=== PATIENT | male | born 1940 | race Caucasian/White ===

== ENCOUNTER → 2017-03-09 | Outpatient (CLI) | payer BC ==
[2017-03-09 13:21] LABS: URINE APPEARANCE CLEAR (CLEAR); URINE BILIRUBIN NEG (NEG); URINE COLOR YELLOW; URINE NITRITE NEG (NEG); URINE PH 7.5 (4.5-7.5); URINE SPECIFIC GRAVITY 1.012 (1.000-1.030); UROBILINOGEN NEG (NEG)
[2017-03-09 13:24] LABS: MANUAL MICROSCOPIC REQUIRED? NO; REVIEW REQ? NO
[2017-03-09 13:42] LABS: ALT/SGPT 24 U/L (12-78); AST/SGOT 14 U/L (15-37); BLOOD UREA NITROGEN 11 mg/dl (7-18); BUN/CREATININE RATIO 11.3 (10-20); CALCIUM 9.2 mg/dl (8.5-10.1); CARBON DIOXIDE 31 mmol/L (21-32); CHLORIDE 107 mmol/L (98-107); CHOLESTEROL 149 mg/dl (0-200); CREATININE 0.97 mg/dl (0.60-1.40); GLUCOSE 101 mg/dl (70-99); POTASSIUM 3.9 mmol/L (3.5-5.1); SODIUM 143 mmol/L (136-145); TRIGLYCERIDES 92 mg/dl (0-150); VERY LOW DENSITY LIPOPROT CALC 18 mg/dl
[2017-03-09 13:48] LABS: CHOLESTEROL/HDL RATIO 3.6; HDL CHOLESTEROL 41 mg/dl; LDL CHOLESTEROL CALCULATED 90 mg/dl
== END ==
LOC: C.LABMFLN 06:57
PROVIDERS: ATTEND Family Medicine
DX: E78.5 Hyperlipidemia, unspecified (principal); I10 Essential (primary) hypertension; E03.9 Hypothyroidism, unspecified; I35.8 Other nonrheumatic aortic valve disorders; R31.29 Other microscopic hematuria

== ENCOUNTER → 2017-09-02 | Outpatient (CLI) | payer BC ==
[2017-09-02 13:39] LABS: ALT/SGPT 24 U/L (12-78); AST/SGOT 11 U/L (15-37); BLOOD UREA NITROGEN 15 mg/dl (7-18); BUN/CREATININE RATIO 14.5 (10-20); CALCIUM 8.8 mg/dl (8.5-10.1); CARBON DIOXIDE 28 mmol/L (21-32); CHLORIDE 109 mmol/L (98-107); CREATININE 1.06 mg/dl (0.60-1.40); GLUCOSE 89 mg/dl (70-99); POTASSIUM 3.8 mmol/L (3.5-5.1); SODIUM 143 mmol/L (136-145)
[2017-09-02 13:49] LABS: CHOLESTEROL 138 mg/dl (0-200); CHOLESTEROL/HDL RATIO 3.1; HDL CHOLESTEROL 44 mg/dl; LDL CHOLESTEROL CALCULATED 74 mg/dl; TRIGLYCERIDES 98 mg/dl (0-150); VERY LOW DENSITY LIPOPROT CALC 20 mg/dl
== END | disposition home or self-care (01) ==
LOC: C.LABMFLN 06:54
PROVIDERS: ATTEND Family Medicine
DX: E78.5 Hyperlipidemia, unspecified (principal); I10 Essential (primary) hypertension; E03.9 Hypothyroidism, unspecified

== ENCOUNTER 2020-08-20 20:16 | Inpatient (IN) ==
--- NOTE | 2020-08-20 20:35 | Emergency Department Note ---
Impression & Plan Chest pain, exertional, Abnormal cardiovascular stress test, Non-ST elevation KS (NSTEMI) ED Provider Note Provider: Bonifacio Norton MD DATE OF SERVICE:08/20/2020 CHIEF COMPLAINT: Exertional chest pain, stress test abnormal HISTORY OF PRESENT ILLNESS: Patient is a 80-year-old gentleman with a past medical history of hypothyroidism, diastolic dysfunction, hyperlipidemia, esophageal dilation for stenosis, and GERD presenting today referred by his special assemblies supervisor after an abnormal stress test today. Patient states he has been having for some months some worsening exertional chest discomfort and slight shortness of breath. Patient states he has had outpatient work-up. Had an EGD with some esophageal stenosis in May. Symptoms have improved some with burping he states but predominantly in the center chest occasionally radiates to the left upper arm. Occasionally little leg swelling. Denies abdominal pain. Given continued symptoms underwent nuclear stress test today. Patient states he was called by his special assemblies supervisor to review this imaging today and is concerned for large area of ischemia in the LAD territory and was sent here for further evaluation and likely cardiac catheterization tomorrow. Patient denies any palpitations or dizziness currently. Patient states he is on Plavix. Patient has been started on multiple medications over the past week including isosorbide without improvement of symptoms. Patient currently chest pain-free. Patient does endorse pain during stress test today. REVIEW OF SYSTEMS: A total of 10 review of systems was obtained and negative except as stated above in the HPI. PAST MEDICAL HISTORY: As noted above MEDICATIONS: reviewed home medication list FMH:CAD SOCIAL HISTORY: lives with in [place], distant former smoker PHYSICAL EXAM: GENERAL: alert and oriented in no acute distress on stretcher Head: normocephalic and atraumatic EYES: No injection, discharge or icterus. NECK: Trachea midline. Supple. LUNGS: Airway patent. No retractions. Breath sounds clear HEART: Regular rate and rhythm. No chest wall tenderness ABDOMEN: Soft and non-tender, without guarding or rebound. SKIN: Acyanotic, warm, dry, without rashes EXTREMITIES: Without swelling, tenderness or deformity NEUROLOGICAL: No focal deficits. No aphasia. No facial droop or slurred speech. Ambulatory. EK bpm normal sinus rhythm. No PVCs or PACs noted. No acute segment elevation but some V3 through V5 slight ST depression noted. CONTINUOUS CARDIAC MONITORING: was ordered and showed a heart rate of 88 bpm in NSR Chest xray 1view: Per my interpretation without evidence of lobar pneumonia or pneumothorax. No acute bony abnormality noted. No cardiomegaly. Prominent right hilar fullness with prominent interstitial markings. No clear pulmonary edema. No free air under the diaphragm. Patient's laboratory studies and imaging reviewed. Differential includes Cardiac ischemia, aortic dissection, pulmonary embolism, pneumothorax, pneumonia, pericarditis, myocarditis, esophageal rupture, GERD, cholecystitis, pancreatitis, musculoskeletal, as well as other pathologies. IMPRESSION/MEDICAL DECISION MAKING: Patient presents for abnormal stress test and exertional chest pain. Has extensive prior work-up including EGD. Positive stress test findings today. Patient currently chest pain-free in the ED. EKG, chest x-ray, basic labs obtained. No anemia or leukocytosis is noted. TSH wnl. INR is normal. No transaminitis. EKG with questions of some ST depression but no acute STEMI. Trop positive likely 2/2 to stress. Patient again is symptom-free at this point. Discussed with the hospitalist patient will be admitted for further cardiac evaluation and catheterization in the morning unless he develops other significant symptoms. Patient is already on Plavix. Rapid Covid testing was sent as patient require cardiac catheterization in the morning and negative. No emergent need overnight given his lack of symptoms at this time. Doubt PE given stress test findings today or aortic dissection. No abdominal pain/tenderness and doubt intraabdominal process for symptoms. Given +trop and stress results will start heparin ggt. Hospitalist to see for admission DIAGNOSIS: NSTEMI, exertional chest pain, abnormal stress test DISPOSITION: Hospitalist will evaluate Patient was agreeable with this plan. Critical Care I have personally spent 33 minutes of critical care time in the direct managem ent of this patient. This includes bedside care, interpretation of diagnostic studies, and testing, discussion with consultants, patient, and family members, and other required patient management activities. These 33 minutes is in excess of all separately billable procedures. Past Med/Surg History Medical History (Updated 08/20/20 @ 21:37 by Bonifacio Norton M.D.) Aortic valve sclerosis Difficult airway for intubation "small airway" noted on cholecysectomy 2004? @ [facility]--had knee sx later with no issues Esophageal stricture GERD (gastroesophageal reflux disease) Hearing deficit Hiatal hernia Hyperlipidemia Hypertension Hypothyroidism On anticoagulant therapy on plavix d/t vertebrobasilar insufficiency Vertebrobasilar insufficiency Surgical History (Updated 08/12/20 @ 09:13 by Madi Hylton MD) History of cataract surgery bilt History of cholecystectomy History of knee surgery left History of Mohs micrographic surgery for skin cancer nose x2 History of surgery on left wrist no hardware History of tonsillectomy and adenoidectomy History of tooth extraction S/P dilatation of esophageal stricture Family History Father , Age 62 Myocardial infarction Mother , Age 92 Heart disease Family/Other Pure hypercholesterolemia Hypertension Other No family history of adverse response to anesthesia Denies family history of Ovarian cancer Prostate cancer Breast cancer Colorectal cancer Social History Smoking Status: Former smoker Age Started Using Tobacco: 15; Age Quit Using Tobacco: 33; packs per day: 1.5; Second Hand Exposure: Yes; Hx Alcohol Use: Yes Alcohol type: beer Hx Substance Use: No Preferred Language: Finnish Communication Ability: Effective Visual Impairment: Limited Hearing Ability: Use of Hearing Aid Hogshead Mat Inspector Required: No Beliefs That Will Affect Care: None marital status: Current Living Situation: Spouse current occupational status: employed 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 Feels Safe at Home: Yes Childhood Exposure to Second-Hand Smoke: Yes Diet Comment: "eat what I see diet" caffeine: Yes during the past year weight has: remained stable Dental Care, Regularly: Yes Physical Activity Frequency: 5-6 Times per Week Seatbelt Use: always Sunscreen Use: No Assistive Devices: Denture - Upper, Denture - Lower, Glasses and Hearing Aid - Bilateral Allergies Allergies Allergy/AdvReac Type Severity Reaction Status Date / Time No Known Allergies Allergy Verified 08/20/20 21:41 Home Meds Home Medications Medication Instructions Recorded Confirmed levothyroxine 50 mcg PO QAM 06/12/20 08/20/20 loratadine 10 mg capsule 10 mg PO DAILY PRN 08/12/20 08/20/20 famotidine 20 mg PO QAM 08/20/20 08/20/20 isosorbide mononitrate 30 mg PO QAM 08/20/20 08/20/20 pantoprazole 40 mg PO QPM 08/20/20 08/20/20 Previous Rx's Medication Instructions Recorded simvastatin 40 mg tablet 40 mg PO QPM #90 tab 11/22/19 amlodipine 10 mg-benazepril 40 mg 1 cap PO QAM #90 cap 08/18/20 capsule clopidogrel 75 mg tablet 75 mg PO QAM #90 tab 08/18/20 metoprolol tartrate 25 mg tablet 25 mg PO BID #180 tab 08/18/20 Results & Data (ED) Vital Signs Vital Signs - 24 hr 08/20/20 20:18 08/20/20 20:38 08/20/20 20:41 Temperature 36.8 C Temperature Source Oral Pulse Rate 112 H 80 Pulse Rhythm Regular Pulse Strength Normal Respiratory Rate 20 15 Respiratory Effort / Characteristics Non-Labored Spontaneous Respiratory Depth Normal Respiratory Pattern Regular Blood Pressure 146/92 H Blood Pressure Mean 110 Blood Pressure Position Sitting Pulse Oximetry 95 97 Oxygen Delivery Method Room Air Room Air Sepsis Recent Fever Within 48 Hours No Sepsis New/Unexplained Change in Mental Status N/A Sepsis Action Taken by Nursing No Action Required 08/20/20 20:50 08/20/20 21:00 08/20/20 21:01 Temperature Temperature Source Pulse Rate 85 70 72 Pulse Rhythm Pulse Strength Respiratory Rate 15 17 21 Respiratory Effort / Characteristics Respiratory Depth Respiratory Pattern Blood Pressure 118/86 Blood Pressure Mean 94 Blood Pressure Position Pulse Oximetry Oxygen Delivery Method Sepsis Recent Fever Within 48 Hours Sepsis New/Unexplained Change in Mental Status Sepsis Action Taken by Nursing 08/20/20 21:10 Temperature Temperature Source Pulse Rate 78 Pulse Rhythm Pulse Strength Respiratory Rate 20 Respiratory Effort / Characteristics Respiratory Depth Respiratory Pattern Blood Pressure Blood Pressure Mean Blood Pressure Position Pulse Oximetry Oxygen Delivery Method Sepsis Recent Fever Within 48 Hours Sepsis New/Unexplained Change in Mental Status Sepsis Action Taken by Nursing Laboratory Data Result diagrams: 08/20/20 20:36 08/20/20 20:36 Lab Results 08/20/20 08/20/20 08/20/20 Range/Units 20:36 20:36 20:36 WBC 8.11 (4.8-10.8) K/uL RBC 4.94 (4.7-6.1) M/uL Hgb 14.9 (14.0-18.0) g/dL Hct 43.7 (42-52) % MCV 88.5 (80-100) fL MCH 30.2 (25-34) pg MCHC 34.1 (32-36) g/dL RDW Std Deviation 44.3 (36.4-46.3) fL RDW Coeff of Marcus 13.6 (11.5-14.5) % Plt Count 326 (130-400) K/uL MPV 10.1 (7.4-10.4) fL Immature Gran % (Auto) 0.5 % Neut % (Auto) 66.3 % Lymph % (Auto) 21.1 % Hudson % (Auto) 9.5 % Eos % (Auto) 2.1 % Baso % (Auto) 0.5 % Neut # (Auto) 5.38 (1.4-6.5) K/uL Lymph # (Auto) 1.71 (1.2-3.4) K/uL Hudson # (Auto) 0.77 H (0.11-0.59) K/uL Eos # (Auto) 0.17 (0-0.5) K/uL Baso # (Auto) 0.04 (0-0.2) K/uL Immature Gran # (Auto) 0.04 H (0.00-0.02) K/uL PT 11.4 (9.0-12.0) Seconds INR 1.1 (0.9-1.1) APTT 29.7 (21.0-31.0) Seconds PTT Ratio 1.1 Sodium 140 (136-145) mmol/L Potassium 3.6 (3.5-5.1) mmol/L Chloride 108 H (98-107) mmol/L Carbon Dioxide 28 (21-32) mmol/L Anion Gap 4.0 (3-11) BUN 14 (7-18) mg/dl Creatinine 1.16 (0.6-1.4) mg/dl Est Cr Clr Drug Dosing 54.0 ml/min Est GFR ( Amer) 69.0 Est GFR (Non-Af Amer) 59.6 BUN/Creatinine Ratio 11.9 (10-20) Glucose 96 (70-99) mg/dl Calcium 9.5 (8.5-10.1) mg/dl Total Bilirubin 0.7 (0.2-1) mg/dl AST 17 (15-37) U/L ALT 28 (12-78) U/L Alkaline Phosphatase 85 (45-117) U/L Troponin I 0.263 H* (0-0.045) ng/ml Total Protein 8.3 H (6.4-8.2) gm/dl Albumin 4.3 (3.4-5.0) gm/dl Globulin 4.0 (2.5-4.0) gm/dl Albumin/Globulin Ratio 1.1 (0.9-2) Lipase 91 (73-393) U/L TSH 2.700 (0.300-4.500) uIu/ml COVID-19 Eval Order SARS-CoV-2, RNA, NAAT (NEGATIVE) 08/20/20 08/20/20 Range/Units 20:42 20:42 WBC (4.8-10.8) K/uL RBC (4.7-6.1) M/uL Hgb (14.0-18.0) g/dL Hct (42-52) % MCV (80-100) fL MCH (25-34) pg MCHC (32-36) g/dL RDW Std Deviation (36.4-46.3) fL RDW Coeff of Marcus (11.5-14.5) % Plt Count (130-400) K/uL MPV (7.4-10.4) fL Immature Gran % (Auto) % Neut % (Auto) % Lymph % (Auto) % Hudson % (Auto) % Eos % (Auto) % Baso % (Auto) % Neut # (Auto) (1.4-6.5) K/uL Lymph # (Auto) (1.2-3.4) K/uL Hudson # (Auto) (0.11-0.59) K/uL Eos # (Auto) (0-0.5) K/uL Baso # (Auto) (0-0.2) K/uL Immature Gran # (Auto) (0.00-0.02) K/uL PT (9.0-12.0) Seconds INR (0.9-1.1) APTT (21.0-31.0) Seconds PTT Ratio Sodium (136-145) mmol/L Potassium (3.5-5.1) mmol/L Chloride (98-107) mmol/L Carbon Dioxide (21-32) mmol/L Anion Gap (3-11) BUN (7-18) mg/dl Creatinine (0.6-1.4) mg/dl Est Cr Clr Drug Dosing ml/min Est GFR ( Amer) Est GFR (Non-Af Amer) BUN/Creatinine Ratio (10-20) Glucose (70-99) mg/dl Calcium (8.5-10.1) mg/dl Total Bilirubin (0.2-1) mg/dl AST (15-37) U/L ALT (12-78) U/L Alkaline Phosphatase (45-117) U/L Troponin I (0-0.045) ng/ml Total Protein (6.4-8.2) gm/dl Albumin (3.4-5.0) gm/dl Globulin (2.5-4.0) gm/dl Albumin/Globulin Ratio (0.9-2) Lipase (73-393) U/L TSH (0.300-4.500) uIu/ml COVID-19 Eval [facility] SARS-CoV-2, RNA, NAAT NEGATIVE (NEGATIVE) Discharge Plan Visit Data Chief Complaint: Referred by Doctor Stated Complaint: PALPITATIONS SENT BY DOCTOR ED Provider: Bonifacio Norton Discharge Problem: Chest pain, exertional, Abnormal cardiovascular stress test, Non-ST elevation KS (NSTEMI) Forms Stand Alone Forms: My [facility] Prescriptions Prescriptions: No Action simvastatin 40 mg tablet 40 mg PO QPM Qty: 90 RF: 3 amlodipine-benazepril 10-40 mg capsule 1 cap PO QAM Qty: 90 RF: 3 clopidogrel 75 mg tablet 75 mg PO QAM Qty: 90 RF: 3 metoprolol tartrate 25 mg tablet 25 mg PO BID Qty: 180 RF: 3 loratadine 10 mg capsule 10 mg PO DAILY PRN (Reason: Allergy Symptoms) RF: 0 levothyroxine 50 mcg tablet 50 mcg PO QAM RF: 0 isosorbide mononitrate 30 mg tablet extended release 24 hr 30 mg PO QAM RF: 0 famotidine 20 mg tablet 20 mg PO QAM RF: 0 pantoprazole 40 mg tablet,delayed release (DR/EC) 40 mg PO QPM RF: 0
[2020-08-20 20:52] LABS: Basophils # (auto) 0.04 K/uL (0-0.2); Basophils % (auto) 0.5 %; Eosinophils # (auto) 0.17 K/uL (0-0.5); Eosinophils % (auto) 2.1 %; Hematocrit (blood only) 43.7 % (42-52); Hemoglobin 14.9 g/dL (14.0-18.0); Immature Granulocytes # (auto) 0.04 K/uL (0.00-0.02); Immature Granulocytes % (auto) 0.5 %; Lymphocytes # (auto) 1.71 K/uL (1.2-3.4); Lymphocytes % (auto) 21.1 %; Mean Corpuscular Hemoglobin 30.2 pg (25-34); Mean Corpuscular Hgb Conc 34.1 g/dL (32-36); Mean Corpuscular Volume 88.5 fL (80-100); Mean Platelet Volume 10.1 fL (7.4-10.4); Monocytes # (auto) 0.77 K/uL (0.11-0.59); Monocytes % (auto) 9.5 %; Neutrophils # (auto) 5.38 K/uL (1.4-6.5); Neutrophils % (auto) 66.3 %; Platelet Count 326 K/uL (130-400); RDW Coefficient of Variation 13.6 % (11.5-14.5); RDW Standard Deviation 44.3 fL (36.4-46.3); Red Blood Count 4.94 M/uL (4.7-6.1); White Blood Count 8.11 K/uL (4.8-10.8)
[2020-08-20 21:05] LABS: INR 1.1 (0.9-1.1); Partial Thromboplastin Ratio 1.1; Partial Thromboplastin Time 29.7 Seconds (21.0-31.0); Prothrombin Time 11.4 Seconds (9.0-12.0)
[2020-08-20 21:14] LABS: Albumin Level 4.3 gm/dl (3.4-5.0); BUN Creatinine Ratio 11.9 (10-20); Calcium 9.5 mg/dl (8.5-10.1); Est GFR (Non-African American) 59.6; Potassium 3.6 mmol/L (3.5-5.1)
[2020-08-20 21:27] LABS: Albumin Globulin Ratio 1.1 (0.9-2); Bilirubin,Total 0.7 mg/dl (0.2-1); Thyroid Stimulating Hormone 2.7 uIu/ml (0.300-4.500); Total Protein 8.3 gm/dl (6.4-8.2); Troponin I 0.263 ng/ml (0-0.045)
[2020-08-20] MEDS ORDERED: Heparin IV Low Dose WITH Bolus IV STA (22:00)
[2020-08-20] MEDS ORDERED: HEPARIN SODIUM/DEXTROSE 25,000 UNITS/500 ML BAG IV SCH (22:00)
[2020-08-20] MEDS ORDERED: HEPARIN SOD (PORCINE) 1000 UNIT/ML 10 ML VIAL ONE (22:13)
--- NOTE | 2020-08-20 23:01 | History & Physical Report ---
Date of Service August 20, 2020 Assessment & Plan (1) Non-ST elevation AR (NSTEMI): Pt is a 80yo gentleman with a PMHx significant for HTN, HLD, hypothyroidism, GERD and vertebrobasilar insufficiency who was admitted with an NSTEMI for cath in the AM. NSTEMI -Pt states he has been having anginal symptoms with exertion for the last 3 months -Had a stress echo today which showed ischemia in the LAD territory, EF of 56% noted -Was advised by his paper winder to come in for urgent catheterization in the AM -Currently w/o chest pain, nitro-bid 0.5inch q6h ordered PRN. Can consider adding morphine if additional pain control needed. Continue home isosorbide mononitrate 30mg daily. -Trops elevated to 0.263, trend q6h -continue heparin drip -NPO after midnight for procedure. COVID negative. -NSS@80mls/hr -admit to PCU/tele for continuous cardiac monitoring HTN -continue home beta jeffrey: metoprolol tartrate 25mg BID -continue home LUDIVINA (with CC jeffrey): amlodipine 10mg-benazepril 40mg HLD -continue home statin: simvastatin 40mg daily -consider switching to a high intensity statin GERD -continue home pantoprazole 40mg daily -continue home famotidine 20mg daily Hypothyroidism -continue home levothyroxine 50 mcg daily Vertebrobasilar Insufficiency -continue home Plavix 75mg daily -not currently on aspirin FEN/GI: NPO after midnight, NSS@80mls/hr DVT Prophylaxis: on a heparin drip CODE STATUS: Full code Dispo: PCU/tele (2) Hypothyroidism: (3) Benign essential hypertension: (4) Hyperlipidemia: (5) Chronic GERD: (6) Aortic valve sclerosis: (7) Hiatal hernia: (8) Chest pain, exertional: (9) Vertebrobasilar insufficiency: History of Present Illness Primary Care Provider: Byron Neri MD Pt is a very pleasant 80yo gentleman with a PMHx significant for HTN, HLD, hypothyroidism, GERD and vertebrobasilar insufficiency who was admitted with an NSTEMI for cath in the AM. Pt states that he has been having chest pain with exertion for the last 3 months. 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 Does not take anything when this happens (states his has nitro pills but not him) and the pain usually goes away after some rest. States the last time he had pain was this evening after his stress echo. Does not have the pain right now. Denies any associated SOB, palpitations, N/V. Has been following with [facility] cardi[facility] who asked him to come in today for cath in the AM. He smoked for 18 years but quit in 1973, follows no particular diet, and has a significant fam Hx of dad having an AR at age 52. PMHx: As above PSH: Cholecystectomy, and L knee meniscal surgery. Fam Hx : His dad had an AR at age 52, and 10 years later. Mom lived to 92 and had atrial fibrillation and CHF. Allergies: NKDA SH: Lives at home with his . Smoked for 18years but quit in 1973. States he has an occasional beer but no recreational drug use. Diet consists of "what I see, I eat". States he does not exercise particularly. Allergies Allergy/AdvReac Type Severity Reaction Status Date / Time No Known Allergies Allergy Verified 08/20/20 21:41 Home Medications Home Medications Medication Instructions Recorded Confirmed Type levothyroxine 50 mcg PO QAM 06/12/20 08/20/20 History loratadine 10 mg capsule 10 mg PO DAILY PRN 08/12/20 08/20/20 History amlodipine 10 mg-benazepril 40 mg 1 cap PO QAM #90 cap 08/18/20 08/20/20 Rx capsule clopidogrel 75 mg tablet 75 mg PO QAM #90 tab 08/18/20 08/20/20 Rx metoprolol tartrate 25 mg tablet 25 mg PO BID #180 tab 08/18/20 08/20/20 Rx famotidine 20 mg PO QAM 08/20/20 08/20/20 History isosorbide mononitrate 30 mg PO QAM 08/20/20 08/20/20 History pantoprazole 40 mg PO QPM 08/20/20 08/20/20 History aspirin 81 mg PO DAILY #30 tab 08/21/20 Rx rosuvastatin 20 mg PO DAILY 30 Days #30 tab 08/21/20 Rx Past Med/Surg History Medical History (Updated 08/22/20 @ 00:02 by Background Iban) Aortic valve sclerosis Difficult airway for intubation "small airway" noted on cholecysectomy 2004? @ [facility]--had knee sx later with no issues Esophageal stricture GERD (gastroesophageal reflux disease) Hearing deficit Hiatal hernia Hyperlipidemia Hypertension Hypothyroidism On anticoagulant therapy on plavix d/t vertebrobasilar insufficiency Vertebrobasilar insufficiency Surgical History History of cataract surgery bilt History of cholecystectomy History of knee surgery left History of Mohs micrographic surgery for skin cancer nose x2 History of surgery on left wrist no hardware History of tonsillectomy and adenoidectomy History of tooth extraction S/P dilatation of esophageal stricture Family History Father , Age 62 Myocardial infarction Mother , Age 92 Heart disease Family/Other Pure hypercholesterolemia Hypertension Other No family history of adverse response to anesthesia Denies family history of Ovarian cancer Prostate cancer Breast cancer Colorectal cancer Social History Smoking Status: Former smoker Age Started Using Tobacco: 15; Age Quit Using Tobacco: 33; packs per day: 1.5; Second Hand Exposure: Yes; Hx Alcohol Use: Yes Alcohol type: beer Hx Substance Use: No Preferred Language: Maltese Communication Ability: Effective Visual Impairment: Limited Hearing Ability: Use of Hearing Aid Flume Tender Required: No Beliefs That Will Affect Care: None marital status: Current Living Situation: Spouse 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 occupational status: employed 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 Feels Safe at Home: Yes Childhood Exposure to Second-Hand Smoke: Yes Diet Comment: "eat what I see diet" caffeine: Yes during the past year weight has: remained stable Dental Care, Regularly: Yes Physical Activity Frequency: 5-6 Times per Week Seatbelt Use: always Sunscreen Use: No Assistive Devices: Denture - Upper and Hearing Aid - Bilateral Review of Systems Constitutional: no fever, no chills and no sweats Eyes: no worsening vision Ear, Nose, Mouth, Throat: no nasal congestion and no sore throat Respiratory: no cough and no dyspnea Cardiovascular: + chest pain and + chest pain with activity; no dyspnea on exe rtion, no palpitations and no edema Gastrointestinal: no nausea, no vomiting, no constipation, no diarrhea/loose stools and no blood in stools Genitourinary: no dysuria Musculoskeletal: no back pain Integumentary: no rash Neurologic: no tingling, no numbness, no headache(s) and no confusion Psychiatric: no confusion Physical Exam Physical Exam: General: Alert, oriented. No acute distress, laying in bed watching TV Skin: No noted rashes or bruises Psych: Appropriate mood and affect Neuro: No gross deficits HEENT: NC/AT Chest: Nontender to palpation. CV: RRR, Normal s1, s2. Blowing murmur appreciated Resp: Breath sounds clear bilaterally, no increased effort of breathing. No crackles/rhonchi/rales. Abdomen: Soft, nontender, protuberant. No guarding. Extremities: No edema in lower extremities bilaterally. Results & Data Results & Data ([facility]) Vital Signs (Past 12 Hours) Vital Signs Temp Pulse Resp BP Pulse Ox 08/20/20 22:20 68 15 08/20/20 22:10 72 16 08/20/20 22:01 65 16 118/89 08/20/20 22:00 72 17 08/20/20 21:50 68 23 08/20/20 21:40 69 16 08/20/20 21:30 70 20 08/20/20 21:20 67 17 08/20/20 21:10 78 20 08/20/20 21:01 72 21 118/86 08/20/20 21:00 70 17 08/20/20 20:50 85 15 08/20/20 20:41 80 15 08/20/20 20:38 97 08/20/20 20:18 36.8 C 112 H 20 146/92 H 95 Supervising Physician Co-Signing Physician Notes Attending addendum: I have physically seen this patient, have supervised the medical residents activities, and agree with the H&P unless as otherwise noted. Assessment and Plan: Elevated troponin/abnormal outpatient stress test- The patient will be admitted to telemetry for serial cardiac enzymes, serial EKG's, cardiac rhythm monitoring. Continue aspirin, clopidogrel, isosorbide mononitrate, amlodipine/benazepril and metoprolol tartrate. Consult cardiology GERD- Continue pantoprazole and famotidine. Hypothyroidism- Continue levothyroxine sodium Hyperlipidemia- Continue rosuvastatin 20 mg daily Remaining orders and notations as noted Resident Activity Tracking Resident Involvement: Resident Care Provided Care Provided: [facility]
[2020-08-21] MEDS ORDERED: NITROGLYCERIN 2% OINTMENT 30GM TUBE EXT PRN (00:07)
[2020-08-21] MEDS ORDERED: LORATADINE 10 MG TAB PO PRN (00:10)
[2020-08-21] MEDS: SODIUM CHLORIDE 0.9% 1000ML 1,000 ML IV SCH ×2 (00:47→15:07)
[2020-08-21 02:36] LABS: Basophils # (auto) 0.03 K/uL (0-0.2); Basophils % (auto) 0.4 %; Eosinophils # (auto) 0.17 K/uL (0-0.5); Eosinophils % (auto) 2.5 %; Hematocrit (blood only) 40.3 % (42-52); Hemoglobin 13.8 g/dL (14.0-18.0); Immature Granulocytes # (auto) 0.02 K/uL (0.00-0.02); Immature Granulocytes % (auto) 0.3 %; Lymphocytes # (auto) 1.15 K/uL (1.2-3.4); Lymphocytes % (auto) 16.9 %; Mean Corpuscular Hemoglobin 30.3 pg (25-34); Mean Corpuscular Hgb Conc 34.2 g/dL (32-36); Mean Corpuscular Volume 88.6 fL (80-100); Mean Platelet Volume 9.9 fL (7.4-10.4); Monocytes # (auto) 0.75 K/uL (0.11-0.59); Neutrophils # (auto) 4.68 K/uL (1.4-6.5); Neutrophils % (auto) 68.9 %; Platelet Count 275 K/uL (130-400); RDW Coefficient of Variation 13.7 % (11.5-14.5); RDW Standard Deviation 44.5 fL (36.4-46.3); Red Blood Count 4.55 M/uL (4.7-6.1)
[2020-08-21 02:54] LABS: BUN Creatinine Ratio 12.4 (10-20); Calcium 8.6 mg/dl (8.5-10.1); Creatinine Clr Calc Pharmacy 62.9 ml/min; Est GFR (African American) 82.6; Est GFR (Non-African American) 71.3; Potassium 3.5 mmol/L (3.5-5.1)
[2020-08-21 03:06] LABS: Troponin I 0.248 ng/ml (0-0.045)
[2020-08-21 04:44] LABS: Partial Thromboplastin Ratio 1.9
[2020-08-21] MEDS ORDERED: LEVOTHYROXINE SODIUM 50 MCG TABLET PO SCH (06:30)
--- NOTE | 2020-08-21 06:46 | XRay Report ---
XR chest 1V portable HISTORY: 80 years-old Male Chest Pain acute atypical chest pain COMPARISON: None TECHNIQUE: Portable AP view of the chest FINDINGS: Cardiac silhouette is upper limits of normal in size. Calcified plaque of the thoracic aortic arch. 4 .6 cm circumscribed opacity of the right paratracheal tissues. No pneumothorax, pleural effusion or o vert pulmonary edema. Minimal subsegmental left lung base atelectasis/scarring. Degenerative changes of the shoulders and spine. Cholecystectomy. IMPRESSION: 1. No acute process. 2. Right paratracheal opacity is suggestive of a probable vascular pedicle. Adenopathy or underlying lung lesion considered less likely. Correlate with prior imaging. ACT 112: Negative or not required by law. The above report was generated using voice recognition software. It may contain grammatical, syntax o r spelling errors. Electronically signed by: Femi Roberts M.D. 08/21/2020 6:45 AM
--- NOTE | 2020-08-21 07:11 | Hospitalist Progress Note ---
Date of Service August 21, 2020 Assessment & Plan (1) Unstable angina: Pt is a 80yo gentleman with a PMHx significant for HTN, HLD, hypothyroidism, GERD and vertebrobasilar insufficiency who was admitted with an NSTEMI for cath in the AM. hypertensive 154/87 this AM, otherwise normal vitals H/H ok. Hb 13.8 cmp wnl elev trop x2. 0.263->0.226 normal tsh 2.7 neg covid 08/20/20 cardiology consulted. plan is cath at 1200 per admission HPI: "Pt states that he has been having chest pain with exertion for the last 3 months. 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 Does not take anything when this happens (states his has nitro pills but not him) and the pain usually goes away after some rest. States the last time he had pain was this evening after his stress echo. Does not have the pain right now. Denies any associated SOB, palpitations, N/V. Has been [place] [facility] who asked him to come in today for cath in the AM. He smoked for 18 years but quit in 1973, follows no particular diet, and has a significant fam Hx of dad having an IA at age 52. PMHx: As above PSH: Cholecystectomy, and L knee meniscal surgery. Fam Hx : His dad had an IA at age 52, and 10 years later. Mom lived to and had atrial fibrillation and CHF. Allergies: NKDA SH: Lives at home with his . Smoked for 18years but quit in 1973. States he has an occasional beer but no recreational drug use. Diet consists of "what I see, I eat". States he does not exercise particularly." unstable angina -anginal symptoms with exertion for the last 3 months -Had a stress echo outpatient which showed ischemia in the LAD territory, EF of 56% noted -Was advised by his housing director to come in for urgent catheterization in the AM -Currently w/o chest pain, nitro-bid 0.5inch q6h ordered PRN. Can consider adding morphine if additional pain control needed. Continue home isosorbide mononitrate 30mg daily. -Trops elevated to 0.263, trend q6h -continue heparin drip -NPO after midnight for procedure. COVID negative. -NSS@80mls/hr -admit to PCU/tele for continuous cardiac monitoring HTN -continue home beta jeffrey: metoprolol tartrate 25mg BID -continue home LUDIVINA (with CC jeffrey): amlodipine 10mg-benazepril 40mg HLD -continue home statin: simvastatin 40mg daily -consider switching to a high intensity statin GERD -continue home pantoprazole 40mg daily -continue home famotidine 20mg daily Hypothyroidism -continue home levothyroxine 50 mcg daily Vertebrobasilar Insufficiency -continue home Plavix 75mg daily -not currently on aspirin FEN/GI: NPO after midnight, NSS@80mls/hr DVT Prophylaxis: on a heparin drip CODE STATUS: Full code Dispo: PCU/tele (2) Hypothyroidism: (3) Benign essential hypertension: (4) Hyperlipidemia: (5) Chronic GERD: (6) Aortic valve sclerosis: (7) Hiatal hernia: (8) Chest pain, exertional: (9) Vertebrobasilar insufficiency: Admission and Anticipated Discharge Date Admission Date: August 20, 2020 Subjective Patient exertional cp for 8-9 months. was worsening 2 months ago, so contacted his cardiology. can't exert over [address] Midchest radiate to L. sometimes mild tingling.goes down arm. neck pain 1 time. no jaw pain. no diaphoresis nausea vomiting. burping helps alleviate. 18 pack yr hx distant past. quit in 1973. no illicit. etoh. 1 beer every 3 wks per patient, had murmur since childhood surgeries: knee, gall bladder. tonsils. skin cancer melanoma no heart surgeries. currently all ros neg, including no cp at rest dad IA 52. passed at 62 mom no heart hx. murmur Review of Systems Review of Systems: Constitutional: Denies fever, chills, weight change Eyes: Denies blurry vision, vision changes ENT: Denies sore throat, sinus pain Cardiovascular: Denies chest pain, palpitations Respiratory: Denies shortness of breath, cough, sputum production, difficulty breathing Gastrointestinal: Denies abdominal pain, nausea, vomiting, constipation, diarrhea Genitourinary: Denies urinary symptoms including dysuria Musculoskeletal: Denies weakness, muscle aches/pain, joint aches/pain Neurological: Denies headache, numbness, tingling, focal weakness Physical Exam Physical Exam: General: Grossly A&O. NAD. Cooperative. HEENT: Atraumatic, normocephalic. EOMI Pulm: CTAB. -wheezes, -rales, -rhonchi. No respiratory distress. Cardiac: RRR, -mrg. Radial pulses intact and symmetrical. Abdominal: Nontender, nondistended, soft. 2/6 systolic murmur aortic and pulmonic regions. no bruits. radial2+ abd lung ok. eomi. mmm. poor dentition. no pedal edema. Results & Data Results & Data ([facility]) Vital Signs (Past 12 Hours) Vital Signs Temp Pulse Pulse Resp BP BP BP 08/21/20 06:59 36.8 C 69 18 154/87 H 08/21/20 03:38 37.0 C 68 18 147/87 H 08/21/20 00:12 36.6 C 99 H 18 152/90 H 08/21/20 00:00 70 08/20/20 23:10 84 20 08/20/20 23:00 72 17 118/89 08/20/20 22:50 91 H 20 08/20/20 22:40 73 18 08/20/20 22:20 68 15 08/20/20 22:10 72 16 08/20/20 22:01 65 16 118/89 08/20/20 22:00 72 17 08/20/20 21:50 68 23 08/20/20 21:40 69 16 08/20/20 21:30 70 20 08/20/20 21:20 67 17 08/20/20 21:10 78 20 08/20/20 21:01 72 21 118/86 08/20/20 21:00 70 17 08/20/20 20:50 85 15 08/20/20 20:41 80 15 08/20/20 20:38 08/20/20 20:18 36.8 C 112 H 20 146/92 H Pulse Ox 08/21/20 06:59 94 08/21/20 03:38 94 08/21/20 00:12 98 08/21/20 00:00 08/20/20 23:10 08/20/20 23:00 97 08/20/20 22:50 08/20/20 22:40 08/20/20 22:20 08/20/20 22:10 08/20/20 22:01 08/20/20 22:00 08/20/20 21:50 08/20/20 21:40 08/20/20 21:30 08/20/20 21:20 08/20/20 21:10 08/20/20 21:01 08/20/20 21:00 08/20/20 20:50 08/20/20 20:41 08/20/20 20:38 97 08/20/20 20:18 95 Resident Activity Tracking Resident Involvement: Resident Care Provided Care Provided: Adult Hospital Medicine
[2020-08-21] MEDS ORDERED: FAMOTIDINE 20 MG TAB PO SCH (09:00)
[2020-08-21] MEDS ORDERED: ISOSORBIDE MONO EXTENDED REL 30 MG TABCR PO SCH (09:00)
[2020-08-21] MEDS ORDERED: ENALAPRIL MALEATE 10 MG TAB PO SCH (09:00)
[2020-08-21] MEDS ORDERED: amLODIPine BESYLATE 5 MG TAB PO SCH (09:00)
[2020-08-21] MEDS: METOPROLOL TARTRATE 25 MG TAB PO SCH ×2 (09:35→11:15)
[2020-08-21] MEDS: CLOPIDOGREL BISULFATE 75 MG TAB PO SCH ×2 (09:36→11:15)
[2020-08-21] MEDS ORDERED: ASPIRIN 325 MG ECTAB PO ONE (11:10)
[2020-08-21] MEDS ORDERED: HEPARIN (PORCINE) 1000 UNIT/ML 10 ML (CATH LAB USE ONLY) ONE (11:14)
[2020-08-21] MEDS ORDERED: niCARdipine HCL INJ 2.5 MG/ML 10 ML AMP ONE (11:14)
[2020-08-21] MEDS ORDERED: fentaNYL citrate 100 MCG/2 ML VIAL ONE ×2 (11:14→13:49)
[2020-08-21] MEDS ORDERED: MIDAZOLAM HCL 1 MG/ML 2ML VIAL ONE ×3 (11:15→13:49)
[2020-08-21] MEDS ORDERED: NITROGLYCERIN/D5W 100MCG/ML 20ML SYR ONE (11:15)
[2020-08-21] MEDS: ASPIRIN 81 MG CHEW ONE ×2 (11:15→12:18)
[2020-08-21 11:21] LABS: Partial Thromboplastin Ratio 1.9
--- NOTE | 2020-08-21 11:22 | Cardiology Consultation ---
Date of Consultation August 21, 2020 Assessment & Plan (1) Abnormal nuclear stress test: (2) Unstable angina: (3) Benign essential hypertension: (4) Hyperlipidemia: ASSESSMENT/PLAN: 1. Unstable angina: Symptoms are consistent with unstable angina. Also has high risk myocardial perfusion study and elevated troponins with episode of chest discomfort yesterday. Recommend cardiac catheterization. Risks and benefits were discussed with him in detail. He was made aware that CT surgery is not available at this facility. Recommend aspirin. Continue Plavix for now (on Plavix for vertebrobasilar insufficiency). Continue beta-jeffrey, LUDIVINA- inhibitor, and other antihypertensive agents. Recommend high-intensity statin therapy. 2. Abnormal myocardial perfusion study: Suggests LAD ischemia (large territory). Plan as above. 3. Hypertension: Blood pressure elevated however he did not receive his morning medications. Discussed with nursing staff who plans on giving morning medications prior to cardiac catheterization. 4. Dyslipidemia: LDL not optimized. Replace simvastatin with high-intensity statin therapy. 5. Disposition: Cardiology will continue to follow. Patient care has been discussed with Dr. Lovell of the primary hospitalist service. Highly complex medical issues. Thank you for allowing me to participate in the care of your patient. Please call for any other questions or concerns. Sincerely, Anthony Hylton M.D. History of Present Illness Reason for Consultation: High risk myocardial perfusion study and unstable angina. Requesting Physician: Simón Lovell DO Attending Physician: Simón Lovell DO History of Present Illness Mr. Henry is a pleasant 80-year-old gentleman with a history significant for hypertension, diastolic dysfunction, hyperlipidemia, and vertebrobasilar insufficiency. He was diagnosed with esophageal stricture and hiatal hernia on EGD in 2019 and underwent esophageal dilation. He has had the following cardiac procedures: 1. Echocardiogram 06/11/09: Normal LV size and systolic function. Trace MR. Aortic valve sclerosis. RVSP 31 mmHg. Type I diastolic dysfunction. 2. Stress Echo 08/13/09: Exercised 6 minutes on standard Sanjeev protocol. Exercise stress echo negative for ischemia. Exercise ECG positive for ischemia. Hypertensive response, but he did not take his antihypertensive medications prior to the study. 3. Echo 04/19/13: Normal LV size, wall motion, and systolic function. EF 60-65%. Sclerotic aortic valve without stenosis. 4. Stress echo 06/08/2019 [facility]: Negative stress echo at 93% MPHR. Negative ECG. 3 minutes 46 seconds Sanjeev protocol. Normal LV systolic function. Mild left atrial dilation. Sclerotic aortic valve. Mild MR. 5. Myocardial perfusion study 08/20/2020: High risk study suggesting large territory of LAD ischemia with transient ischemic dilation. Hypokinesis on stress imaging in the LAD territory. Normal LV systolic function. He was last seen in the office on 08/12/2020 with symptoms concerning for angina. Cardiac catheterization was recommended however he preferred stress testing. Myocardial perfusion study was performed yesterday. He had no chest pain during the study but given the fact that his study suggested high risk disease, specifically large LAD territory with transient ischemic dilation, he was called at the time of the interpretation. When we discussed on the phone the results, he admitted that after I had left the stress portion of the study, he developed chest discomfort while sitting with his . He then went home from the hospital in the chest pain resolved. He has been having intermittent episodes of rest pain, angina with eating, and angina with physical activity, even regular daily activities. Given the symptoms, it was recommended that he immediately go to the emergency department for admission. Pain-free during our conversation and was chest pain-free in the ER. He has not had any chest discomfort while hospitalized. Initial troponin was 0.263, and repeat this morning was 0.226. He underwent rapid COVID19 screening which was negative. He was placed on a heparin drip by the hospitalist team. Angina consists of substernal chest discomfort that can radiate to his left chest. It occurs with exertion, at rest, and after eating. Sometimes, he feels better with belching. When exertional, he has associated dyspnea, but no diaphoresis. Symptoms typically resolve within 10-15 minutes of rest. His exercise tolerance has significantly declined over time. He denies melena, hematochezia, hematuria, or other bleeding. He denies orthopnea, syncope, near-syncope, palpitations, edema, fevers, chills, nausea, vomiting, or abdominal pain. Review of systems: As above. Review of systems otherwise negative/unremarkable. Family history: Father had WI at the age of 52. Social history: He quit smoking at the age of 33. Rare alcohol. No drugs. He lives at home with his , Lisa. He had 2 sons and 1 daughter however 1 son committed suicide at the age of 39. Five grandson's and 1 great grandson. His was present at the bedside. Allergies Allergy/AdvReac Type Severity Reaction Status Date / Time No Known Allergies Allergy Verified 08/20/20 21:41 Home Medications Home Medications Medication Instructions Recorded Confirmed Type simvastatin 40 mg tablet 40 mg PO QPM #90 tab 11/22/19 08/20/20 Rx levothyroxine 50 mcg PO QAM 06/12/20 08/20/20 History loratadine 10 mg capsule 10 mg PO DAILY PRN 08/12/20 08/20/20 History amlodipine 10 mg-benazepril 40 mg 1 cap PO QAM #90 cap 08/18/20 08/20/20 Rx capsule clopidogrel 75 mg tablet 75 mg PO QAM #90 tab 08/18/20 08/20/20 Rx metoprolol tartrate 25 mg tablet 25 mg PO BID #180 tab 08/18/20 08/20/20 Rx famotidine 20 mg PO QAM 08/20/20 08/20/20 History isosorbide mononitrate 30 mg PO QAM 08/20/20 08/20/20 History pantoprazole 40 mg PO QPM 08/20/20 08/20/20 History Patient History Medical History (Updated 08/21/20 @ 11:29 by Madi Hylton MD) Aortic valve sclerosis Difficult airway for intubation "small airway" noted on cholecysectomy 2004? @ [facility]--had knee sx later with no issues Esophageal stricture GERD (gastroesophageal reflux disease) Hearing deficit Hiatal hernia Hyperlipidemia Hypertension Hypothyroidism On anticoagulant therapy on plavix d/t vertebrobasilar insufficiency Vertebrobasilar insufficiency Surgical History History of cataract surgery bilt History of cholecystectomy History of knee surgery left History of Mohs micrographic surgery for skin cancer nose x2 History of surgery on left wrist no hardware History of tonsillectomy and adenoidectomy History of tooth extraction S/P dilatation of esophageal stricture Family History Father , Age 62 Myocardial infarction Mother , Age 92 Heart disease Family/Other Pure hypercholesterolemia Hypertension Other No family history of adverse response to anesthesia Denies family history of Ovarian cancer Prostate cancer Breast cancer Colorectal cancer Social History Smoking Status: Former smoker Age Started Using Tobacco: 15; Age Quit Using Tobacco: 33; packs per day: 1.5; Smoking End Date: 1973; Second Hand Exposure: Yes; Hx Alcohol Use: Yes Alcohol type: beer Hx Substance Use: No Preferred Language: Pakistani Communication Ability: Effective Visual Impairment: Limited Hearing Ability: Use of Hearing Aid Lead Mechanic Required: No Beliefs That Will Affect Care: None marital status: Current Living Situation: Spouse current occupational status: employed 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 Alert and oriented. HEENT: Anicteric sclera. Neck: No JVD. No bruit. Normal carotid upstrokes bilaterally. Cardiac: PMI was nondisplaced. No ventricular heave. Regular. Normal S1-S2. 2/6 early peaking systolic ejection murmur heard best at right upper sternal border. No rubs or gallops. Pulmonary: Clear to auscultation bilaterally without wheezes, rales, or rhonchi. Abdomen: Soft, nontender, nondistended, with normoactive bowel sounds. No bruits noted. Extremities: 2+ radial pulses bilaterally. 2+ posterior tibialis pulses bilaterally. No significant edema. No cyanosis. Psychiatric: Affect appears appropriate. Results & Data ([facility]) Vital Signs (Past 12 Hours) Vital Signs Temp Pulse Pulse Resp BP BP BP 08/21/20 08:00 65 08/21/20 06:59 36.8 C 69 18 154/87 H 08/21/20 03:38 37.0 C 68 18 147/87 H 08/21/20 00:12 36.6 C 99 H 18 152/90 H 08/21/20 00:00 70 08/20/20 23:10 84 20 08/20/20 23:00 72 17 118/89 08/20/20 22:50 91 H 20 08/20/20 22:40 73 18 08/20/20 22:20 68 15 08/20/20 22:10 72 16 08/20/20 22:01 65 16 118/89 08/20/20 22:00 72 17 08/20/20 21:50 68 23 Pulse Ox 08/21/20 08:00 08/21/20 06:59 94 08/21/20 03:38 94 08/21/20 00:12 98 08/21/20 00:00 08/20/20 23:10 08/20/20 23:00 97 08/20/20 22:50 08/20/20 22:40 08/20/20 22:20 08/20/20 22:10 08/20/20 22:01 08/20/20 22:00 08/20/20 21:50 Laboratory Results Laboratory Results - last 24 hr 08/20/20 08/20/20 08/20/20 20:36 20:36 20:36 WBC 8.11 RBC 4.94 Hgb 14.9 Hct 43.7 MCV 88.5 MCH 30.2 MCHC 34.1 RDW Std Deviation 44.3 RDW Coeff of Marcus 13.6 Plt Count 326 MPV 10.1 Immature Gran % (Auto) 0.5 Neut % (Auto) 66.3 Lymph % (Auto) 21.1 [place] % (Auto) 9.5 Eos % (Auto) 2.1 Baso % (Auto) 0.5 Neut # (Auto) 5.38 Lymph # (Auto) 1.71 [place] # (Auto) 0.77 H Eos # (Auto) 0.17 Baso # (Auto) 0.04 Immature Gran # (Auto) 0.04 H PT 11.4 INR 1.1 APTT 29.7 PTT Ratio 1.1 Sodium 140 Potassium 3.6 Chloride 108 H Carbon Dioxide 28 Anion Gap 4.0 BUN 14 Creatinine 1.16 Est Cr Clr Drug Dosing 54.0 Est GFR ( Amer) 69.0 Est GFR (Non-Af Amer) 59.6 BUN/Creatinine Ratio 11.9 Glucose 96 Calcium 9.5 Total Bilirubin 0.7 AST 17 ALT 28 Alkaline Phosphatase 85 Troponin I 0.263 H* Total Protein 8.3 H Albumin 4.3 Globulin 4.0 Albumin/Globulin Ratio 1.1 Lipase 91 TSH 2.700 COVID-19 Eval Order SARS-CoV-2, RNA, NAAT 08/20/20 08/20/20 08/21/20 20:42 20:42 02:24 WBC 6.80 RBC 4.55 L Hgb 13.8 L Hct 40.3 L MCV 88.6 MCH 30.3 MCHC 34.2 RDW Std Deviation 44.5 RDW Coeff of Marcus 13.7 Plt Count 275 MPV 9.9 Immature Gran % (Auto) 0.3 Neut % (Auto) 68.9 Lymph % (Auto) 16.9 [place] % (Auto) 11.0 Eos % (Auto) 2.5 Baso % (Auto) 0.4 Neut # (Auto) 4.68 Lymph # (Auto) 1.15 L [place] # (Auto) 0.75 H Eos # (Auto) 0.17 Baso # (Auto) 0.03 Immature Gran # (Auto) 0.02 PT INR APTT PTT Ratio Sodium Potassium Chloride Carbon Dioxide Anion Gap BUN Creatinine Est Cr Clr Drug Dosing Est GFR ( Amer) Est GFR (Non-Af Amer) BUN/Creatinine Ratio Glucose Calcium Total Bilirubin AST ALT Alkaline Phosphatase Troponin I Total Protein Albumin Globulin Albumin/Globulin Ratio Lipase TSH COVID-19 Eval [facility] SARS-CoV-2, RNA, NAAT NEGATIVE 08/21/20 08/21/20 08/21/20 02:24 04:11 08:21 WBC RBC Hgb Hct MCV MCH MCHC RDW Std Deviation RDW Coeff of Marcus Plt Count MPV Immature Gran % (Auto) Neut % (Auto) Lymph % (Auto) [place] % (Auto) Eos % (Auto) Baso % (Auto) Neut # (Auto) Lymph # (Auto) [place] # (Auto) Eos # (Auto) Baso # (Auto) Immature Gran # (Auto) PT INR APTT 54.0 H* PTT Ratio 1.9 Sodium 145 Potassium 3.5 Chloride 112 H Carbon Dioxide 29 Anion Gap 4.0 BUN 12 Creatinine 1.00 Est Cr Clr Drug Dosing 62.9 Est GFR ( Amer) 82.6 Est GFR (Non-Af Amer) 71.3 BUN/Creatinine Ratio 12.4 Glucose 110 H Calcium 8.6 Total Bilirubin AST ALT Alkaline Phosphatase Troponin I Pending 0.226 H* Total Protein Albumin Globulin Albumin/Globulin Ratio Lipase TSH COVID-19 Eval Order SARS-CoV-2, RNA, NAAT 08/21/20 10:44 WBC RBC Hgb Hct MCV MCH MCHC RDW Std Deviation RDW Coeff of Marcus Plt Count MPV Immature Gran % (Auto) Neut % (Auto) Lymph % (Auto) [place] % (Auto) Eos % (Auto) Baso % (Auto) Neut # (Auto) Lymph # (Auto) [place] # (Auto) Eos # (Auto) Baso # (Auto) Immature Gran # (Auto) PT INR APTT 52.2 H* PTT Ratio 1.9 Sodium Potassium Chloride Carbon Dioxide Anion Gap BUN Creatinine Est Cr Clr Drug Dosing Est GFR ( Amer) Est GFR (Non-Af Amer) BUN/Creatinine Ratio Glucose Calcium Total Bilirubin AST ALT Alkaline Phosphatase Troponin I Total Protein Albumin Globulin Albumin/Globulin Ratio Lipase TSH COVID-19 Eval Order SARS-CoV-2, RNA, NAAT Diagnostic Findings Telemetry personally reviewed: Sinus rhythm. No arrhythmia. Myocardial perfusion study 08/20/2020: Report reviewed. Results as noted above in HPI. ECG personally reviewed: ECG 08/20/2020: Sinus rhythm 81 beats per minute. Nonspecific ST abnormality. Chest x-ray 08/20/2020: No acute process. Medications Administered Current Inpatient Medications Amlodipine Besylate (Amlodipine Besylate 5 Mg Tab) 10 mg PO [facility] Stop: 09/20/20 08:59 Last Admin: 08/21/20 11:16 Dose: 10 mg Documented by: Clopidogrel Bisulfate (Clopidogrel Bisulfate 75 Mg Tab) 75 mg PO [facility] Stop: 09/20/20 08:59 Last Admin: 08/21/20 11:15 Dose: 75 mg Documented by: Enalapril Maleate (Enalapril Maleate 10 Mg Tab) 40 mg PO [facility] Stop: 09/20/20 08:59 Last Admin: 08/21/20 11:16 Dose: 40 mg Documented by: Famotidine (Famotidine 20 Mg Tab) 20 mg PO [facility] Stop: 09/20/20 08:59 Last Admin: 08/21/20 11:15 Dose: 20 mg Documented by: Heparin Sodium/Dextrose (Heparin Sodium/Dextrose) 25,000 units in 500 mls @ 18 mls/hr IV .Q24H [facility]; Protocol Stop: 09/19/20 21:59 Last Titration: 08/21/20 07:06 Dose: 900 units/hr, 18 mls/hr Documented by: Sodium Chloride (Nss 1000ml) 1,000 mls @ 80 mls/hr IV .[id number] [facility] Stop: 09/20/20 00:06 Last Admin: 08/21/20 00:47 Dose: 80 mls/hr Documented by: Isosorbide Mononitrate (Isosorbide [place] Extended Rel 30 Mg Tabcr) 30 mg PO QAM [facility] Stop: 09/20/20 08:59 Last Admin: 08/21/20 11:16 Dose: 30 mg Documented by: Levothyroxine Sodium (Levothyroxine Sodium 50 Mcg Tablet) 50 mcg PO DAILYBB [facility] Stop: 09/20/20 06:29 Last Admin: 08/21/20 06:09 Dose: 50 mcg Documented by: Loratadine (Loratadine 10 Mg Tab) 10 mg PO DAILY PRN PRN Reason: Allergy Symptoms Stop: 09/20/20 00:09 Metoprolol Tartrate (Metoprolol Tartrate 25 Mg Tab) 25 mg PO BID [facility] Stop: 09/20/20 08:59 Last Admin: 08/21/20 11:15 Dose: 25 mg Documented by: Nitroglycerin (Nitroglycerin 2% Ointment 30gm Tube) 0.5 inch EXT Q6H PRN PRN Reason: Chest Pain Stop: 09/20/20 00:06 Pantoprazole Sodium (Pantoprazole 40 Mg Tab) 40 mg PO QPM [facility] Stop: 09/20/20 20:59 Simvastatin (Simvastatin 40 Mg Tab) 40 mg PO QPM [facility] Stop: 09/20/20 20:59 PG Care Time/CCT Total # of Minutes Spent Total Time Spent with Patient: Total time spent is greater than 50% in coordination of care (as documented) at patient's floor/unit and/or counseling patient: Coding Level of Care Code 66891 Initial Inpt Care Lvl 3 Diagnoses Abnormal nuclear stress test R94.39 Unstable angina I20.0 Benign essential hypertension I10 Hyperlipidemia E78.5
[2020-08-21 11:24] LABS: Partial Thromboplastin Time 52.2 Seconds (21.0-31.0)
[2020-08-21] MEDS ORDERED: ASPIRIN 81 MG CHEW ONE (11:35)
--- NOTE | 2020-08-21 11:56 | Pre Anesthesia Assessment ---
Date of Service August 21, 2020 Pre Sedation Assessment Vital Signs Temp Pulse Pulse Resp BP BP BP 08/21/20 11:33 74 18 08/21/20 11:01 36.8 C 73 18 163/82 H 08/21/20 08:00 65 08/21/20 06:59 36.8 C 69 18 154/87 H 08/21/20 03:38 37.0 C 68 18 147/87 H 08/21/20 00:12 36.6 C 99 H 18 152/90 H 08/21/20 00:00 70 08/20/20 23:10 84 20 08/20/20 23:00 72 17 118/89 08/20/20 22:50 91 H 20 08/20/20 22:40 73 18 08/20/20 22:20 68 15 08/20/20 22:10 72 16 08/20/20 22:01 65 16 118/89 08/20/20 22:00 72 17 08/20/20 21:50 68 23 08/20/20 21:40 69 16 08/20/20 21:30 70 20 08/20/20 21:20 67 17 08/20/20 21:10 78 20 08/20/20 21:01 72 21 118/86 08/20/20 21:00 70 17 08/20/20 20:50 85 15 08/20/20 20:41 80 15 08/20/20 20:38 08/20/20 20:18 36.8 C 112 H 20 146/92 H Pulse Ox 08/21/20 11:33 92 08/21/20 11:01 94 08/21/20 08:00 08/21/20 06:59 94 08/21/20 03:38 94 08/21/20 00:12 98 08/21/20 00:00 08/20/20 23:10 08/20/20 23:00 97 08/20/20 22:50 08/20/20 22:40 08/20/20 22:20 08/20/20 22:10 08/20/20 22:01 08/20/20 22:00 08/20/20 21:50 08/20/20 21:40 08/20/20 21:30 08/20/20 21:20 08/20/20 21:10 08/20/20 21:01 08/20/20 21:00 08/20/20 20:50 08/20/20 20:41 08/20/20 20:38 97 08/20/20 20:18 95 Cardiovascular + regular rate + murmur Respiratory normal respiratory effort, lungs clear to auscultation Pre-Sedation Airway Assessment Smoking Status: Former smoker Hx Sleep Apnea: No Short, Thick Neck: No Thyromental Distance: > or= 3.5 Finger Breadths Oral Cavity: + WNL Mallampati Class: IV ASA: ASA3 NPO Status Date of Last Intake of Fluids: 08/21/20 Time of Last Intake of Fluids: 11:00 Last Oral Intake of Fluids Comment: sips with meds Date of Last Intake of Solid Food: 08/20/20 Time of Last Intake of Solid Foods: 23:15 Procedure Planning Contraindications for Sedation: none Current Medications Reviewed: Yes Notes The planned sedation has been discussed with the patient. Informed Consent was obtained. I have identified the patient, determined the appropriateness of sedation and have assessed the patient immediately prior to the procedure. All medicine(s) and interventions are by my order.
--- NOTE | 2020-08-21 13:37 | Cardiac Catheterization ---
[facility] Data: Steward/Stewardess Wine Cardiac Status Clinical evaluation leading to the procedure CAD Presenation: Unstable angina Anginal Classification: CCS IV Heart Failure: No Cardiogenic Shock within 24 Hours: No Cardiac Arrest within 24 Hours: No Imaging Studies Past 6 Months: Yes Stress Studies Past 6 Months: Yes Standard Exercise Test: No Stress Echocardiogram: No Stress Testing w/SPECT MPI: Yes - Positive and Risk/Extent of Ischemia (High) Cardiac CTA: No Coronary Anatomy Dominant: Right Left Ventricular Angiography EF (%): n/a Diagnostic Physicians Name: Madi Hylton MD Status: Elective Closure Device Percutaneous Entry Location: Femoral Closure Device: None-Manual Hold (left femoral sheath remained in place for PCI. Closure as per Dr. Negro.) Recommendations: Management Recommendatons (as above) Cardiac Cath Procedure Full Procedure Date August 21, 2020 Pre-Procedure Diagnosis Pre-Procedure Diagnosis: Angina and Positive Stress Test AUC Score AUC Score: 9 Post-Procedure Diagnosis Post-Procedure Diagnosis: Severe CAD and Elevated Intracardiac Pressures Procedure(s) Performed Procedure(s) Performed: Coronary Angiography, Left Heart Cath and Ultrasound Guided Vascular Access Manager Telemarketing Madi Hylton MD Dynamite Packing Machine Feeder(s) Vincenzo Estimated Blood Loss Estimated Blood Loss: < 100 ml Medication(s) Medication(s): Fentanyl, Heparin, Lidocaine 1%, Nicardipine and Versed Summary of Findings Procedures: 1. Coronary angiography 2. Left heart catheterization 3. Ultrasound guidance for vascular access 4. Moderate sedation Coronary angiography: 1. Left main coronary artery: Distal LMCA 30%. 2. Left anterior descending: The LAD is a large-caliber vessel that extends to the apex. Proximal LAD 95+% with large lucent filling defect (thrombus versus calcium). Mid LAD 99% stenosis with large lucent filling defect (thrombus versus calcium). Late mid LAD approximately 90% with lucency (thrombus vs calcium) at bifurcation of D1. FLASH I flow through the LAD. 3. Circumflex: The circumflex is a large-caliber vessel that gives rise to a small OM1 and large OM 2. Mid OM2 40% stenosis. 4. Right coronary artery: RCA is large and dominant. Proximal RCA 30%. Mid RCA diffusely diseased with up to 50 to 70% stenosis with lucent filling defect. Large PL and large PDA. Right to left collaterals. Left heart catheterization: 1. Left ventriculography was not performed. 2. No significant aortic stenosis. 3. Moderately elevated LVEDP; 20 mmHg. Moderate sedation: 1. Sedation start time: 12 PM 2. Sedation end time: 1:39 PM Ultrasound guidance for vascular access: 1. Left femoral artery was accessed with 6 Estonian sheath. Needle entry was guided with ultrasound, visualizing the needle entry into the left femoral artery. There is no known complication. Left femoral artery was successfully cannulized with 1 stick. 2. Ultrasound was also used to cannulized the right femoral artery with the access needle, however the wire was unable to be successfully advanced to place the sheath. Procedural details: 1. Angiography of the LMCA was performed via the right radial artery. There was significant tortuosity within the right subclavian artery, limiting catheter manipulation. Multiple attempts were made to engage the right coronary artery. The RCA appeared to originate superiorly and medial. Multiple catheters were attempted including JR4, DRC, and AR-1. Due to difficulty in manipulation of the catheters, the decision was made to proceed with femoral approach. Impression: 1. Severe CAD involving the proximal and mid LAD. FLASH I flow within the LAD. (Culprit vessel) 2. Severe CAD involving ostial D1 with moderate to severe CAD involving the mid RCA. 3. Right to left collaterals. 4. Otherwise, nonobstructive CAD. 5. Moderately elevated left-sided filling pressure. 6. No significant aortic stenosis. Plan: 1. Images were reviewed with Dr. Negro of interventional cardiology. He plans on attempting PCI of LAD. 2. Optimize medical therapy/risk factor modification. Hemodynamics Rest Ao:: 129/66 Final Ao: 130/65 LV: 151/10/20 Recommendations Recommendations: Management Recommendatons (as above) Specimens Specimens: None Radiation Exposure (mGy) 2796 mGy. Fluoro time 26.3 min. 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 Any exceptions are noted below. [employer] Card Cath Procedure Codes Cardiac Catheterization Procedure 1: Cardiovascular Cath Procedures: 61998 Coronaries and LHC (+/-LV) Therapeutic Services & Ancillary Proc Procedure 1: Cardiovascular Tx and Anc Procedures: 48840 Ultrasonic Guidance Vascular Access Moderate Sedation Procedure 1: Sedation/Anesthesia: 58607 Mod Sedation by the same physician;Init15 Min Child Age 5 & Up Procedure 2: Sedation/Anesthesia: 49078 Mod Sedation by the same physician; Ea [id number] Minutes Procedure 3: Sedation/Anesthesia: 45899 Mod Sedation by the same physician; Ea [id number] Minutes Procedure 4: Sedation/Anesthesia: 26003 Mod Sedation by the same physician; Ea [id number] Minutes Procedure 5: Sedation/Anesthesia: 65410 Mod Sedation by the same physician; Ea Addition al15 Minutes Procedure 6: Sedation/Anesthesia: 60992 Mod Sedation by the same physician; Ea [id number] Minutes PG Care Time/CCT Total # of Minutes Spent Total Time Spent with Patient: Total time spent is greater than 50% in coordination of care (as documented) at patient's floor/unit and/or counseling patient:
--- NOTE | 2020-08-21 17:34 | Post Anesthesia Assessment ---
Date of Service August 21, 2020 Post Sedation Assessment Vital Signs Temp Pulse Pulse Pulse Resp BP BP 08/21/20 17:11 57 L 16 138/72 08/21/20 16:41 54 L 14 134/72 08/21/20 16:13 52 L 14 129/70 08/21/20 15:49 53 L 14 126/68 08/21/20 15:34 51 L 14 126/59 L 08/21/20 15:18 57 L 14 114/82 08/21/20 15:00 97.3 F L 53 L 14 115/68 08/21/20 14:45 57 L 18 120/70 08/21/20 14:30 54 L 18 130/73 08/21/20 11:33 74 18 08/21/20 11:01 98.2 F 73 18 163/82 H 08/21/20 08:00 65 08/21/20 06:59 98.2 F 69 18 154/87 H 08/21/20 03:38 98.6 F 68 18 08/21/20 00:12 97.9 F 99 H 18 08/21/20 00:00 70 08/20/20 23:10 84 20 08/20/20 23:00 72 17 118/89 08/20/20 22:50 91 H 20 08/20/20 22:40 73 18 08/20/20 22:20 68 15 08/20/20 22:10 72 16 08/20/20 22:01 65 16 118/89 08/20/20 22:00 72 17 08/20/20 21:50 68 23 08/20/20 21:40 69 16 08/20/20 21:30 70 20 08/20/20 21:20 67 17 08/20/20 21:10 78 20 08/20/20 21:01 72 21 118/86 08/20/20 21:00 70 17 08/20/20 20:50 85 15 08/20/20 20:41 80 15 08/20/20 20:38 08/20/20 20:18 98.2 F 112 H 20 146/92 H BP Pulse Ox 08/21/20 17:11 92 08/21/20 16:41 93 08/21/20 16:13 92 08/21/20 15:49 93 08/21/20 15:34 93 08/21/20 15:18 91 10/29/20 15:00 91 08/21/20 14:45 92 08/21/20 14:30 93 08/21/20 11:33 92 08/21/20 11:01 94 08/21/20 08:00 08/21/20 06:59 94 08/21/20 03:38 147/87 H 94 08/21/20 00:12 152/90 H 98 08/21/20 00:00 08/20/20 23:10 08/20/20 23:00 97 08/20/20 22:50 08/20/20 22:40 08/20/20 22:20 08/20/20 22:10 08/20/20 22:01 08/20/20 22:00 08/20/20 21:50 08/20/20 21:40 08/20/20 21:30 08/20/20 21:20 08/20/20 21:10 08/20/20 21:01 08/20/20 21:00 08/20/20 20:50 08/20/20 20:41 08/20/20 20:38 97 08/20/20 20:18 95 Recovery Score Activity: Moves 4 extremities Respiration: Deep Breath/Cough Circulation: +/-20% PreAnes Value Consciousness: Fully Awake Oxygen Saturation: > 92% On Room Air Post Anesthesia Score: 10 Discharge Sedation Level of Care: Fast Track Phase II Post Sedation Plan On clinical assessment, the patient appears to have tolerated the sedation without complications. Patient is recovering as anticipated. Patient will continue to be monitored by nursing and may be discharged when sedation discharge criteria are met per below protocol. Upon Completions of procedure up to 15 minutes continue every 5 minute vital signs and the P.A.R. score; then discharge to a Phase I or Fast Track to Phase II per the following guidelines: * Discharge Patient to appropriate Phase II area if PAR is 8 or greater or return to pre- procedure baseline. The post - procedure orders will be as directed. * If PAR score is less than 8 or not return to pre-procedure baseline then patient will follow Phase I monitoring till PAR is reached for Phase II. The Phase I may be done in procedure room or may call to secure a Phase I area. * If naloxone or flumazenil are used for reversal, hold in Phase I for continued monitoring from when last reversal dose was given for a minimum of 60 minutes or longer pending the nurse and/or physician discretion of patient condition before discharge to Phase II. Please call the Sedation Physician to re-evaluate and complete post-note for discharge to Phase II area. Do NOT discharge from procedure sedation or Phase 1 until post- sedation evaluation note is complete by procedure /sedation MD Sedation Discharge Instructions to be given to the patient at discharge to home.
--- NOTE | 2020-08-21 17:38 | Cardiac Catheterization ---
[facility] Data: Activities Counselor Cardiac Status Clinical evaluation leading to the procedure CAD Presenation: Non STEMI Anginal Classification: CCS IV Heart Failure: No Cardiogenic Shock within 24 Hours: No Cardiac Arrest within 24 Hours: Yes Imaging Studies Past 6 Months: Yes Stress Studies Past 6 Months: Yes Stress Testing w/SPECT MPI: Yes - Positive and Risk/Extent of Ischemia (High) Diagnostic Physicians Name: Alec Negro MD Status: Elective Closure Device Percutaneous Entry Location: Femoral Closure Device: [employer]Close Recommendations: PCI without planned CABG and CABG Intraprocedure Events Significant Disection: No Perforation: No Cardiac Cath Procedure Full Procedure Date August 21, 2020 Pre-Procedure Diagnosis Pre-Procedure Diagnosis: Angina and Positive Stress Test AUC Score AUC Score: 8 Post-Procedure Diagnosis Post-Procedure Diagnosis: Severe CAD Procedure(s) Performed Procedure(s) Performed: Coronary Angiography and IVUS Manager Cleaning Alec Negro MD Tax Examiner(s) Vincenzo Estimated Blood Loss Estimated Blood Loss: 15 Medication(s) Medication(s): Fentanyl, Heparin, Lidocaine 1% and Versed Summary of Findings IVUS OF LEFT MAIN, PROXIMAL LAD For full details of patient's coronary angiography please see cath report dictated by Dr. Hylton from earlier today. Briefly patient had a high risk stress test yesterday in the setting of accelerating angina, now occurring intermittently at rest. Was found to have severe sequential, heavily calcified LAD lesions with FLASH I-II flow. IVUS used to assess left main and proximal LAD Procedure: Left main cannulated with EBU 3.[address] Thru Order Taker 50 wire navigated across LAD lesions into distal vessel [place] IVUS points to proximal LAD, unable to cross heavily calcified proximal stenosis IVUS pullback revealed severe, eccentric calcified plaque in the proximal LAD. Calcified plaque extended into distal left main. Left main with heavily calcified circumferential stenosis, MLA 6.1 to 6.4 mm IVUS catheter and wire removed. No apparent coronary complications. Summary: 1. Borderline distal left main calcified CAD (MLA by IVUS 6.4 mm) 2. Severe, sequential, Heavily calcified proximal to mid LAD lesions with FLASH I-II distal flow Recommendations: Recommend referral to tertiary center for CABG evaluation versus high risk PCI with atherectomy Hemodynamics Rest Ao:: 135/68/93 Final Ao: 135/69/97 LV: -- Recommendations Recommendations: PCI without planned CABG and CABG Specimens Specimens: None Radiation Exposure (mGy) 3594 Contrast (mls) 150 total Drains Drains: none Anesthesia moderate Procedural Complication(s) None Disposition PCU I attest to the content of the Intraoperative Record and any orders documented therein. Any exceptions are noted below. [facility] Card Cath Procedure Codes Therapeutic Services & Ancillary Proc Procedure 1: Cardiovascular Tx and Anc Procedures: 98621 IV Ultrasound (Coronary or Graft) Moderate Sedation Procedure 1: Sedation/Anesthesia: 47987 Mod Sedation by the same physician; Ea [id number] Minutes PG Care Time/CCT Total # of Minutes Spent Total Time Spent with Patient: Total time spent is greater than 50% in coordination of care (as documented) at patient's floor/unit and/or counseling patient:
--- NOTE | 2020-08-21 18:06 | Discharge Summary ---
Date of Service August 21, 2020 Admission HPI Per Admitting Provider Pt is a very pleasant 80yo gentleman with a PMHx significant for HTN, HLD, hypothyroidism, GERD and vertebrobasilar insufficiency who was admitted with an NSTEMI for cath in the AM. Pt states that he has been having chest pain with exertion for the last 3 months. 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 Does not take anything when this happens (states his has nitro pills but not hi m) and the pain usually goes away after some rest. States the last time he had pain was this evening after his stress echo. Does not have the pain right now. Denies any associated SOB, palpitations, N/V. [place] [facility] [place] asked him to come in today for cath in the AM. He smoked for 18 years but quit in 1973, follows no particular diet, and has a significant fam Hx of dad having an MS at age 52. PMHx: As above PSH: Cholecystectomy, and L knee meniscal surgery. Fam Hx : His dad had an MS at age 52, and 10 years later. Mom lived to and had atrial fibrillation and CHF. Allergies: NKDA SH: Lives at home with his . Smoked for 18years but quit in 1973. States he has an occasional beer but no recreational drug use. Diet consists of "what I see, I eat". States he does not exercise particularly. Principal Diagnosis CAD w unstable angina Discharge Exam gen aaox3 pleasant nad heent nc at mmm breathing unlabored no accessory muscles good effort skin no rashes no pallor or icterus neuro no focal deficits Discharge Data Allergies Allergy/AdvReac Type Severity Reaction Status Date / Time No Known Allergies Allergy Verified 08/20/20 21:41 Consultations 08/20/20 21:12 ED Decision to Admit Stat 08/21/20 10:39 Consult Cardiology Routine Procedures Performed Operation Date: 08/21/20 12:00 Actual Procedures p Cath, Left with Cors and Vent - Madi Hylton MD s IVUS Coronary Single Vessel - Smith Negro MD s Cineradiography w/Routine Exam - Madi Hylton MD s Placement Art Occlusive Device - Smith Negro MD Procedures: 1. Coronary angiography 2. Left heart catheterization 3. Ultrasound guidance for vascular access 4. Moderate sedation Coronary angiography: 1. Left main coronary artery: Distal LMCA 30%. 2. Left anterior descending: The LAD is a large-caliber vessel that extends to the apex. Proximal LAD 95+% with large lucent filling defect (thrombus versus calcium). Mid LAD 99% stenosis with large lucent filling defect (thrombus versus calcium). Late mid LAD approximately 90% with lucency (thrombus vs calcium) at bifurcation of D1. FLASH I flow through the LAD. 3. Circumflex: The circumflex is a large-caliber vessel that gives rise to a small OM1 and large OM 2. Mid OM2 40% stenosis. 4. Right coronary artery: RCA is large and dominant. Proximal RCA 30%. Mid RCA diffusely diseased with up to 50 to 70% stenosis with lucent filling defect. Large PL and large PDA. Right to left collaterals. Left heart catheterization: 1. Left ventriculography was not performed. 2. No significant aortic stenosis. 3. Moderately elevated LVEDP; 20 mmHg. Moderate sedation: 1. Sedation start time: 12 PM 2. Sedation end time: 1:39 PM Ultrasound guidance for vascular access: 1. Left femoral artery was accessed with 6 Surinamese sheath. Needle entry was guided with ultrasound, visualizing the needle entry into the left femoral artery. There is no known complication. Left femoral artery was successfully cannulized with 1 stick. 2. Ultrasound was also used to cannulized the right femoral artery with the access needle, however the wire was unable to be successfully advanced to place the sheath. Procedural details: 1. Angiography of the LMCA was performed via the right radial artery. There was significant tortuosity within the right subclavian artery, limiting catheter manipulation. Multiple attempts were made to engage the right coronary artery. The RCA appeared to originate superiorly and medial. Multiple catheters were attempted including JR4, DRC, and AR-1. Due to difficulty in manipulation of the catheters, the decision was made to proceed with femoral approach. Impression: 1. Severe CAD involving the proximal and mid LAD. FLASH I flow within the LAD. (Culprit vessel) 2. Severe CAD involving ostial D1 with moderate to severe CAD involving the mid RCA. 3. Right to left collaterals. 4. Otherwise, nonobstructive CAD. 5. Moderately elevated left-sided filling pressure. 6. No significant aortic stenosis. Plan: 1. Images were reviewed with Dr. Negro of interventional cardiology. He plans on attempting PCI of LAD. 2. Optimize medical therapy/risk factor modification. For full details of patient's coronary angiography please see cath report dictated by Dr. Hylton from earlier today. Briefly patient had a high risk stress test yesterday in the setting of accele rating angina, now occurring intermittently at rest. Was found to have severe sequential, heavily calcified LAD lesions with FLASH I-II flow. IVUS used to assess left main and proximal LAD Procedure: Left main cannulated with EBU 3.5 guide Auto Damage Appraiser 50 wire navigated across LAD lesions into distal vessel [place] IVUS points to proximal LAD, unable to cross heavily calcified proximal stenosis IVUS pullback revealed severe, eccentric calcified plaque in the proximal LAD. Calcified plaque extended into distal left main. Left main with heavily calcified circumferential stenosis, MLA 6.1 to 6.4 mm IVUS catheter and wire removed. No apparent coronary complications. Summary: 1. Borderline distal left main calcified CAD (MLA by IVUS 6.4 mm) 2. Severe, sequential, Heavily calcified proximal to mid LAD lesions with FLASH I-II distal flow Recommendations: Recommend referral to tertiary center for CABG evaluation versus high risk PCI with atherectomy Ordered Studies 08/21/20 11:38 CL Cath Imgs for PACS use only Routine 08/21/20 14:50 CL IVUS Coronary Single Vessel Routine Hospital Course (1) Unstable angina: admitted for [facility] due to markedly abnormal stress test and resting angina - found also to have mild trop elevation - all consistent w concerning degree of CAD and unstable angina --[facility] as above, unable to intervene here and with severe disease and resting symptoms - transferred to [facility] for interventions Total Time Total Time Spent Total Time Spent (In Minutes): <30 Discharge Plan Discharge Items Patient Disposition: Transfer Acute Care Hospital Reason For Visit: unstable angina Discharge Diagnosis: unstable angina, severe CAD Activity: Per Instructions section Non-emergency contact: Primary Care Provider and Physician Compensation Analyst Call non-emergency contact if: you have any medication questions, your symptoms worsen, you have a fever and your wound has increased drainage Follow-up/Referrals: Byron Neri MD [Primary Care Provider] - Diet: Heart Healthy Addtl Attending Provider Instructions: Talat Henry is a 80 y/o M w/ hx of HTN, HLD, 18 yr pack hx tobacco, hypothyroidism, GERD and vertebrobasilar insufficiency who was admitted unstable angina for evaluation for cardiac cath. Significant family hx of father having an MS at age 52. Patient is stable. His chest pain is only on exertion. unstable angina -anginal symptoms with exertion for the past 8 months, worsened in last 2 months. -08/20/20 outpatient stress echo showed ischemia in the LAD territory, EF of 56% noted -Was advised by his psychiatric clinical nurse specialist to come in for urgent catheterization in the AM -Trops elevated 0.263, 0.226 -heparin drip -Per cardiology, continue Plavix for now (on Plavix for vertebrobasilar insufficiency). Continue beta-jeffrey, LUDIVINA-inhibitor, and other antihypertensive agents. Recommend high-intensity statin therapy. Add daily 81mg ASA. -cardiac cath: 1. Severe CAD involving the proximal and mid LAD. Proximal LAD 95+% with large lucent filling defect (thrombus versus calcium). Mid LAD 99% stenosis with large lucent filling defect (thrombus versus calcium). Late mid LAD approximately 90% with lucency (thrombus vs calcium) at bifurcation of D1. FLASH I flow within the LAD. (Culprit vessel) 2. Severe CAD involving ostial D1 with moderate to severe CAD involving the mid RCA. 3. Right to left collaterals. 4. Otherwise, nonobstructive CAD. 5. Moderately elevated left-sided filling pressure. 6. No significant aortic stenosis. HTN -continue home beta jeffrey: metoprolol tartrate 25mg BID -amlodipine 10mg-benazepril 40mg at home. provided enapril 40mg here Vertebrobasilar Insufficiency -continued home Plavix 75mg daily -not currently on aspirin. I have added 81 mg daily baby aspirin. HLD -home statin: simvastatin 40mg daily -Replace simvastatin with high-intensity statin therapy. -I have switched simvastatin 40mg qhs to rosuvastatin (Crestor) 20mg qhs. You stated that you tried atorvastatin in the past but did not like it based on side effects (leg cramps and swelling). GERD -continued home pantoprazole 40mg daily -continued home famotidine 20mg daily Hypothyroidism -continued home levothyroxine 50 mcg daily KALANI negative 08/20/20 CODE STATUS: Full code Dispo: transfer to [facility] for high risk DUMP GROUNDS CHECKER vs CABG Pending Studies at Discharge: No Stand-Alone Forms: My [facility] Skilled Items Patient informed of condition?: Yes DNR: No Discharge Level of Care: Other Communicable Disease: No Discharge Prognosis: Stable Lines: None Urinary Catheter: No Medications and DC Order Prescriptions: New aspirin 81 mg tablet,delayed release (DR/EC) 81 mg PO DAILY Qty: 30 RF: 3 rosuvastatin 20 mg tablet 20 mg PO DAILY 30 Days Qty: 30 RF: 3 Continued amlodipine-benazepril 10-40 mg capsule 1 cap PO QAM Qty: 90 RF: 3 clopidogrel 75 mg tablet 75 mg PO QAM Qty: 90 RF: 3 metoprolol tartrate 25 mg tablet 25 mg PO BID Qty: 180 RF: 3 loratadine 10 mg capsule 10 mg PO DAILY PRN (Reason: Allergy Symptoms) RF: 0 levothyroxine 50 mcg tablet 50 mcg PO QAM RF: 0 isosorbide mononitrate 30 mg tablet extended release 24 hr 30 mg PO QAM RF: 0 famotidine 20 mg tablet 20 mg PO QAM RF: 0 pantoprazole 40 mg tablet,delayed release (DR/EC) 40 mg PO QPM RF: 0 Discontinued simvastatin 40 mg tablet 40 mg PO QPM Qty: 90 RF: 3 Discharge Orders: Discharge Order (Routine); Ordered 08/21/20 Ordered By: Gen Cook Admission Data Admit Date/Time: 08/20/20 22:51 Attending Provider: Simón Lovell Admit Provider: Tracie Chery Primary Care Provider: Byron Neri Other Providers: Obie Guerra Lawrence ; Madi Hylton Coding Level of Care Code D/C Day Management <30 mins Diagnoses Unstable angina I20.0
[2020-08-21] MEDS ORDERED: SIMVASTATIN 40 MG TAB PO SCH (21:00)
[2020-08-21] MEDS ORDERED: PANTOprazole 40 MG TAB PO SCH (21:00)
--- NOTE | 2020-08-22 04:02 | Billing Data ---
Date of Service August 22, 2020 Coding Level of Care Code 92148 OBS Care - Level 3
--- NOTE | 2020-08-22 05:05 | Electrocardiogram Report ---
Test Reason : Blood Pressure : / mmHG Vent. Rate : 081 BPM Atrial Rate : 081 BPM P-R Int : 172 ms QRS Dur : 094 ms QT Int : 388 ms P-R-T Axes : 056 -14 040 degrees QTc Int : 450 ms Normal sinus rhythm Nonspecific ST abnormality Abnormal ECG No previous ECGs available Confirmed by Maid Hylton ([id number]) on 08/22/2020 5:04:59 AM Referred By: Madi Hylton Confirmed By:Madi Hylton
== END 2020-08-21 18:15 | disposition short-term general hospital (02) | DRG 287 ==
LOC: ED 20:16 → 2E 22:51 → SUATTDRO 22:51 → 2E 23:23